=== PATIENT | male | born 1965 | race Hispanic/Latino ===

== ENCOUNTER 2023-10-29 07:35 | Day surgery (SDC) | payer OTHER ==
[2023-10-23 13:42] LABS: BASOPHILS # (AUTO) 0.03 K/uL (0.00-0.20); BASOPHILS % (AUTO) 0.5 % (0.0-5.0); EOSINOPHILS # (AUTO) 0.23 K/uL (0.00-0.70); EOSINOPHILS % (AUTO) 3.7 % (0.0-8.0); HEMATOCRIT 41.6 % (42-54); IMMATURE GRANULOCYTE ABSOLUTE 0.05 K/uL (0-1); LYMPHOCYTES # (AUTO) 1.8 K/uL (1.0-4.8); LYMPHOCYTES % (AUTO) 29.4 % (21.0-51.0); MEAN CORPUSCULAR HEMOGLOBIN 30.8 pg (27.0-33.0); MEAN CORPUSCULAR HGB CONC 33.9 g/dL (32.0-36.0); MEAN CORPUSCULAR VOLUME 90.8 fL (79-99); MONOCYTES # (AUTO) 0.8 K/uL (0.1-1.0); MONOCYTES % (AUTO) 13.1 % (3.0-13.0); NEUTROPHILS # (AUTO) 3.3 K/uL (1.8-7.7); NEUTROPHILS % (AUTO) 52.5 % (40.0-77.0); PLATELET COUNT (AUTO) 232 K/uL (130-400); RED BLOOD CELL COUNT(AUTO) 4.58 MIL/uL (4.50-6.20); RED CELL DISTRIBUTION WIDTH 12.4 % (11.0-15.5); WHITE BLOOD COUNT (AUTO) 6.3 K/uL (4.8-10.8)
[2023-10-23 13:53] LABS: POTASSIUM 3.9 mmol/L (3.5-5.1)
[2023-10-23 14:46] VITALS: BP 135/75; PULSE 56; RESP 15
[~2023-10-29] VITALS: Ht 167.6 cm; Wt 91.1 kg
[2023-10-29] VITALS (17 sets, daily range): BP systolic 108–153; BP diastolic 53–90; PULSE 50–63; RESP 12–19
[~2023-10-29 07:35] MED LIST: AEC81 PO; CHOL200013 PO; FENO145T26 PO; HYDR-4068 PO; LEVO25CA4 PO; LOSA1TAB42 PO; METO100T14 PO; TIZA-211 PO
[2023-10-29] MEDS ORDERED: CEFAZOLIN SODIUM 2 GM VIAL ONE (08:07)
[2023-10-29] MEDS ORDERED: LACTATED RINGERS 1000ML 1,000 ML IV ONE (08:07)
[2023-10-29] MEDS ORDERED: GLYCOPYRROLATE 0.2 MG/ML 5 ML VIAL ONE ×2 (09:32→12:11)
[2023-10-29] MEDS ORDERED: ROCURONIUM BROMIDE 10MG/1ML 5ML VL ONE (09:32)
[2023-10-29] MEDS ORDERED: PROPOFOL 10 MG/ML 20ML VIAL IV ONE (09:32)
[2023-10-29] MEDS ORDERED: ONDANSETRON 4MG INJ ONE (09:32)
[2023-10-29] MEDS ORDERED: MIDAZOLAM HCL 1 MG/ML 2ML VIAL ONE (09:32)
[2023-10-29] MEDS ORDERED: NEOSTIGMINE METHYLSULFATE 1MG/ML IV ONE ×2 (09:32→12:29)
[2023-10-29] MEDS ORDERED: SUCCINYLCHOLINE CHLORIDE 20 MG/ML 10 ML VIAL ONE (09:32)
[2023-10-29] MEDS ORDERED: DEXAMETHASONE SOD PHOSPHATE 10MG/ML 1ML VIAL ONE (09:32)
[2023-10-29] MEDS ORDERED: LIDOCAINE PF 100MG/5ML (2%) SYRINGE 5ML ONE (09:32)
[2023-10-29] MEDS ORDERED: FENTANYL CITRATE PF 50 MCG/1 ML 2ML VIAL ONE ×2 (09:33→11:08)
[2023-10-29] MEDS: CEFAZOLIN SODIUM 2 GM VIAL IVPB ONE (10:45)
[2023-10-29] MEDS ORDERED: HYDROCODONE/ACETAMINOPHEN 10/325 MG TAB PO PRN (13:00)
[2023-10-29] MEDS: MEPERIDINE-PF 25 MG/ML SYG ONE (13:28)
== END 2023-10-29 14:45 | disposition home or self-care (01) ==
LOC: DAH 07:35
PROVIDERS: ATTEND Orthopaedic Surgery
DX: M75.121 Complete rotator cuff tear or rupture of right shoulder, not specified as traumatic (principal); M75.31 Calcific tendinitis of right shoulder; I10 Essential (primary) hypertension; E78.00 Pure hypercholesterolemia, unspecified; G89.29 Other chronic pain; E03.9 Hypothyroidism, unspecified; E66.9 Obesity, unspecified; Z68.31 Body mass index [BMI] 31.0-31.9, adult; Z79.899 Other long term (current) drug therapy
CPT/HCPCS: 80048; 85025; 36415; 23412; 23405; 64415; A6260; C1713 ×4; A4663; A6207; J7120 ×2; A4565; A4452; J3010 ×2; J1100; J0330; J3490 ×3; J2001; J2250; J2704; J2405; J2710 ×2; J2175; J0690 ×2; A4649; A4930; C1776; A5120; A4215; A4223; A4213; A4222; A4221; A4600